=== PATIENT | female | born 1975 | race Caucasian/White ===

== ENCOUNTER → 2024-06-10 | Day surgery (SDC) | payer OTHER | LOC: RADUSWWP 12:17 | PROVIDERS: ATTEND Family Medicine | DX: Z53.8 Procedure and treatment not carried out for other reasons (principal); R92.8 Other abnormal and inconclusive findings on diagnostic imaging of breast ==

== ENCOUNTER → 2024-12-13 | Outpatient (CLI) | payer OTHER ==
--- NOTE | 2024-12-13 15:02 | USB ---
Reason for Exam: Follow-up at short interval from prior study. Patient History: Menarche at age 11. First Full-Term at age 31. Late child-bearing (after 28). 06/10/2024, US discontinued breast asp RT on the right side. Risk Values: Essence 5 year model risk: 1.4%. NCI Lifetime model risk: 12.0%. Technique: Method: Targeted. Prior Study Comparison: 09/28/2009 Bilateral Screening Mammogram, [facility]. Findings: The lower section of the breast of the right breast, the axilla of the right breast and the retroareolar of the right breast were scanned. Electronically signed and approved by: Joe Campa DO
== END | disposition home or self-care (01) ==
LOC: RADUSWWP 13:56
PROVIDERS: ATTEND Family Medicine
DX: R92.8 Other abnormal and inconclusive findings on diagnostic imaging of breast (principal); N63.10 Unspecified lump in the right breast, unspecified quadrant